=== PATIENT | male | born 1950 | race Caucasian/White ===

== ENCOUNTER 2020-10-30 12:17 | Emergency (ER) | payer MEDICARE, MEDICAID ==
[2020-10-30 12:45] VITALS: BP 164/70; PULSE 99
[2020-10-30] MEDS ORDERED: Sodium Chloride 0.9% 10 ML Syringe FLUSH PRN (13:07)
[2020-10-30] MEDS ORDERED: Sulfamethoxazole/Trimethoprim 800-160 MG Tab PO ONE (14:19)
--- NOTE | 2020-10-30 14:25 | EDM.PDOC ---
ED HPI GENERAL MEDICAL PROBLEM - General Chief Complaint: Skin Complaint Stated Complaint: POSS BLOODCLOT IN LEG Time Seen by Provider: 10/30/20 12:33 Source of Information: Reports: Patient, RN Notes Reviewed History Limitations: Reports: No Limitations - History of Present Illness INITIAL COMMENTS - FREE TEXT/NARRATIVE: Patient is a 69-year-old male presenting to the emergency department with complaints of redness, warmth, and swelling to his right lower extremity from the level of the ankle to just below the knee. States this has been going on for approximately 1 week. He is concerned he could have a blood clot. Patient is not diabetic. Denies any fever, chills, nausea, or vomiting. He has no history of blood clots. Right Leg Pain Score (Numeric/FACES): 4 - Related Data Allergies Allergy/AdvReac Type Severity Reaction Status Date / Time oxycodone Allergy Severe Rash Verified 10/30/20 12:45 Penicillins Allergy Severe Rash Verified 10/30/20 12:45 Home Meds: Home Meds amLODIPine [Norvasc] 10 mg PO DAILY 02/19/16 [History] Oxybutynin Chloride [Oxybutynin Chloride ER] 1 tab PO DAILY 10/30/20 [History] Sulfamethoxazole/Trimethoprim [Bactrim Ds Tablet] 2 each PO BID 10 Days #40 tablet 10/30/20 [Rx] Tamsulosin [Flomax] 1 tab PO DAILY 10/30/20 [History] Past Medical History Cardiovascular History: Reports: Hypertension Genitourinary History: Reports: Renal Calculus Other Genitourinary History: kidney stones Musculoskeletal History: Reports: Other (See Below) Other Musculoskeletal History: 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 - Infectious Disease History Infectious Disease History: Reports: Chicken Pox, Measles Social & Family History - Tobacco Use Tobacco Use Status *Q: Current Every Day Tobacco User Years of Tobacco use: 40 Packs/Tins Daily: 1 - Recreational Drug Use Recreational Drug Use: No ED ROS GENERAL - Review of Systems Review Of Systems: See Below Constitutional: Reports: No Symptoms, Weight Gain. Denies: Fever, Chills, Weakness Respiratory: Reports: No Symptoms Cardiovascular: Reports: No Symptoms Endocrine: Reports: No Symptoms GI/Abdominal: Reports: No Symptoms. Denies: Nausea, Vomiting : Reports: No Symptoms Musculoskeletal: Reports: No Symptoms Skin: Reports: Erythema (Right lower extremity) Neurological: Reports: No Symptoms Psychiatric: Reports: No Symptoms Hematologic/Lymphatic: Reports: No Symptoms Immunologic: Reports: No Symptoms ED EXAM, SKIN/RASH Exam: See Below Exam Limited By: No Limitations General Appearance: Alert, WD/WN, No Apparent Distress Respiratory/Chest: No Respiratory Distress, Lungs Clear, Normal Breath Sounds, No Accessory Muscle Use, Chest Non-Tender Cardiovascular: Normal Peripheral Pulses, Regular Rate, Rhythm, No Edema, No Gallop, No JVD, No Murmur, No Rub Extremities: Other (redness, warmth, and edema to eight lower extremity extending from the ankle to just below the knee. No open areas or weeping noted. ) Neurological: Alert, Oriented, CN II-XII Intact, Normal Cognition, Normal Gait, Normal Reflexes, No Motor/Sensory Deficits Psychiatric: Normal Affect, Normal Mood Course - Vital Signs Last Recorded V/S: Last Vital Signs Temp 98.7 F 10/30/20 12:42 Pulse 99 10/30/20 12:42 Resp 18 10/30/20 12:42 BP 164/70 H 10/30/20 12:42 Pulse Ox 94 L 10/30/20 12:42 - Orders/Labs/Meds Labs: Laboratory Tests 10/30/20 10/30/20 10/30/20 Range/Units 13:27 13:27 13:27 WBC 10.29 H (4.23-9.07) K/mm3 RBC 5.04 (4.63-6.08) M/mm3 Hgb 14.7 (13.7-17.5) gm/dl Hct 45.6 (40.1-51.0) % MCV 90.5 D (79.0-92.2) fl MCH 29.2 (25.7-32.2) pg MCHC 32.2 (32.2-35.5) g/dl RDW Std Deviation 47.5 H (35.1-43.9) fL Plt Count 187 (163-337) K/mm3 MPV 10.3 (9.4-12.3) fl Neut % (Auto) 75.0 H (34.0-67.9) % Lymph % (Auto) 15.5 L (21.8-53.1) % Curry % (Auto) 7.5 (5.3-12.2) % Eos % (Auto) 1.6 (0.8-7.0) Baso % (Auto) 0.1 (0.1-1.2) % Neut # (Auto) 7.73 H (1.78-5.38) K/mm3 Lymph # (Auto) 1.59 (1.32-3.57) K/mm3 Curry # (Auto) 0.77 (0.30-0.82) K/mm3 Eos # (Auto) 0.16 (0.04-0.54) K/mm3 Baso # (Auto) 0.01 (0.01-0.08) K/mm3 D-Dimer, Quantitative 0.36 (0.19-0.50) mg/L Sodium 143 (136-145) mEq/L Potassium 3.6 (3.5-5.1) mEq/L Chloride 106 (98-107) mEq/L Carbon Dioxide 25 (21-32) mEq/L Anion Gap 15.6 H (5-15) BUN 13 (7-18) mg/dL Creatinine 1.2 (0.7-1.3) mg/dL Est Cr Clr Drug Dosing 58.10 mL/min Estimated GFR (MDRD) > 60 (>60) mL/min BUN/Creatinine Ratio 10.8 L (14-18) Glucose 148 H (80-115) mg/dL Lactic Acid (0.4-2.0) mmol/L Calcium 8.7 (8.5-10.1) mg/dL Total Bilirubin 0.6 (0.2-1.0) mg/dL AST 31 (15-37) U/L ALT 34 (16-63) U/L Alkaline Phosphatase 122 H (46-116) U/L C-Reactive Protein 1.0 (<1.0) mg/dL Total Protein 7.1 (6.4-8.2) g/dl Albumin 3.3 L (3.4-5.0) g/dl Globulin 3.8 gm/dL Albumin/Globulin Ratio 0.9 L (1-2) 10/30/20 Range/Units 13:27 WBC (4.23-9.07) K/mm3 RBC (4.63-6.08) M/mm3 Hgb (13.7-17.5) gm/dl Hct (40.1-51.0) % MCV (79.0-92.2) fl MCH (25.7-32.2) pg MCHC (32.2-35.5) g/dl RDW Std Deviation (35.1-43.9) fL Plt Count (163-337) K/mm3 MPV (9.4-12.3) fl Neut % (Auto) (34.0-67.9) % Lymph % (Auto) (21.8-53.1) % Curry % (Auto) (5.3-12.2) % Eos % (Auto) (0.8-7.0) Baso % (Auto) (0.1-1.2) % Neut # (Auto) (1.78-5.38) K/mm3 Lymph # (Auto) (1.32-3.57) K/mm3 Curry # (Auto) (0.30-0.82) K/mm3 Eos # (Auto) (0.04-0.54) K/mm3 Baso # (Auto) (0.01-0.08) K/mm3 D-Dimer, Quantitative (0.19-0.50) mg/L Sodium (136-145) mEq/L Potassium (3.5-5.1) mEq/L Chloride (98-107) mEq/L Carbon Dioxide (21-32) mEq/L Anion Gap (5-15) BUN (7-18) mg/dL Creatinine (0.7-1.3) mg/dL Est Cr Clr Drug Dosing mL/min Estimated GFR (MDRD) (>60) mL/min BUN/Creatinine Ratio (14-18) Glucose (80-115) mg/dL Lactic Acid 2.5 H* (0.4-2.0) mmol/L Calcium (8.5-10.1) mg/dL Total Bilirubin (0.2-1.0) mg/dL AST (15-37) U/L ALT (16-63) U/L Alkaline Phosphatase (46-116) U/L C-Reactive Protein (<1.0) mg/dL Total Protein (6.4-8.2) g/dl Albumin (3.4-5.0) g/dl Globulin gm/dL Albumin/Globulin Ratio (1-2) Meds: Medications Discontinued Medications Generic Name Dose Route Start Last Admin Trade Name Chantal PRN Reason Stop Dose Admin Sodium Chloride 10 ml 10/30/20 13:07 Saline Flush FLUSH ASDIRECTED PRN Keep Vein Open Trimethoprim/Sulfamethoxazole 2 tab 10/30/20 14:19 10/30/20 14:50 Septra Ds PO 10/30/20 14:20 2 tab ONETIME ONE Administration - Re-Assessments/Exams Free Text/Narrative Re-Assessment/Exam: Patient is a 69-year-old male presenting to the emergency department with complaints of redness, warmth, and swelling to his right lower extremity. He is concerned that he could possibly have a blood clot. On exam, there is an area of redness, warmth, and swelling extending from the right ankle to just below the right knee. This has the appearance of a cellulitis as opposed to DVT. I have ordered CBC, CMP, CRP, lactic acid, blood cultures, and D-dimer. 10/30/20 14:24 Hematology was significant for WBC minimally elevated 10.29, anion gap 15.6, lactic acid 2.5. D-dimer is normal at 0.36. He has no signs of systemic infection. He is not tachycardic, tachypneic, or febrile. He has had no nausea or vomiting. Patient is not diabetic. I will start him on a course of Bactrim for treatment of cellulitis. Discussed return precautions. Discharge instructions as documented. Departure - Departure Time of Disposition: 14:28 Disposition: Home, Self-Care 01 Condition: Good Clinical Impression: Cellulitis Qualifiers: Site of cellulitis: extremity Site of cellulitis of extremity: lower extremity Laterality: right Qualified Code(s): L03.115 - Cellulitis of right lower limb - Discharge Information *PRESCRIPTION DRUG MONITORING PROGRAM REVIEWED*: No *COPY OF PRESCRIPTION DRUG MONITORING REPORT IN PATIENT AVINASH: No Prescriptions: Sulfamethoxazole/Trimethoprim [Bactrim Ds Tablet] 2 each PO BID 10 Days #40 tablet Instructions: Cellulitis, Adult, [id number] Referrals: Omar Butt Jr, MD [Primary Care Provider] - Forms: ED Department Discharge Additional Instructions: You were seen in the emergency department today for redness, warmth, and swelling to your right lower extremity. Work was completed and shows that you do not have a blood clot in lower extremity. As we discussed, this is a cellulitis which is an infection of the skin. You have been started on Bactrim for treatment of this. Take the medication as prescribed. Your first dose was given in the emergency department. If you should experience signs of worsening infection such as development of fever, chills, nausea, vomiting, or worsening of the redness and swelling of the right lower extremity, please return to the emergency department for reevaluation. Sepsis Event Note (ED) - Evaluation Sepsis Screening Result: No Definite Risk
== END 2020-10-30 14:58 | disposition home or self-care (01) ==
LOC: JD.ED 12:17
DX: L03.115 Cellulitis of right lower limb (principal); I10 Essential (primary) hypertension; G35 Multiple sclerosis; Z88.5 Allergy status to narcotic agent; Z88.0 Allergy status to penicillin; Z79.899 Other long term (current) drug therapy; Z72.0 Tobacco use
CPT/HCPCS: 36415; 80053; 83605; 85025; 85379; 86140; 87040; 99283; A9270

== ENCOUNTER 2021-07-18 15:52 | Emergency (ER) | payer MEDICARE, MEDICAID ==
[2021-07-18 16:48] VITALS: PULSE 80
[2021-07-18] MEDS ORDERED: Sodium Chloride 0.9% 10 ML Syringe FLUSH PRN (17:03)
[2021-07-18] MEDS ORDERED: Ondansetron 4 MG/2 ML SDV IVPUSH ONE (17:03)
[2021-07-18] MEDS ORDERED: Sodium Chloride 0.9% 1,000 ML IV ONE (17:21)
[2021-07-18 17:37] LABS: CORONAVIRUS COVID-19 NAA NEGATIVE (NEGATIVE)
--- NOTE | 2021-07-18 17:45 | EDM.PDOC ---
ED HPI GENERAL MEDICAL PROBLEM - General Chief Complaint: Gastrointestinal Problem Stated Complaint: HEADACHE Time Seen by Provider: 07/18/21 16:56 Source of Information: Reports: Patient, RN Notes Reviewed History Limitations: Reports: No Limitations - History of Present Illness INITIAL COMMENTS - FREE TEXT/NARRATIVE: Patient is a 70-year-old male who presents to the ER today for his ongoing nausea/vomiting. States that this has been going on for at least 3 or 4 days. States he is not been able to keep anything down for food or fluids. No associated fevers, cough or shortness of breath. Also no associated diarrhea. States he has not had a bowel movement maybe for 2 days as well. Is not complaining of any pain anywhere. States he has not been around anyone has been sick. - Related Data Allergies Allergy/AdvReac Type Severity Reaction Status Date / Time oxycodone Allergy Severe Rash Verified 07/18/21 16:47 Penicillins Allergy Severe Rash Verified 07/18/21 16:47 Home Meds: Home Meds amLODIPine [Norvasc] 10 mg PO DAILY 02/19/16 [History] Oxybutynin Chloride [Oxybutynin Chloride ER] 1 tab PO DAILY 10/30/20 [History] Ondansetron [Zofran ODT] 4 mg PO Q8H PRN #15 tab.dis 07/18/21 [Rx] Past Medical History HEENT History: Reports: Cataract Cardiovascular History: Reports: Hypertension Genitourinary History: Reports: Renal Calculus Other Genitourinary History: kidney stones Musculoskeletal History: Reports: Other (See Below) Other Musculoskeletal History: 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 - Infectious Disease History Infectious Disease History: Reports: Chicken Pox, Measles Social & Family History - Tobacco Use Tobacco Use Status *Q: Current Every Day Tobacco User Years of Tobacco use: 40 Packs/Tins Daily: 1 - Caffeine Use Caffeine Use: Reports: Soda - Recreational Drug Use Recreational Drug Use: No ED ROS GENERAL - Review of Systems Review Of Systems: Comprehensive ROS is negative, except as noted in HPI. ED EXAM, GI/ABD - Physical Exam Exam: See Below Exam Limited By: No Limitations General Appearance: Alert, WD/WN, No Apparent Distress Respiratory/Chest: No Respiratory Distress, Lungs Clear, Normal Breath Sounds, No Accessory Muscle Use, Chest Non-Tender Cardiovascular: Normal Peripheral Pulses, Regular Rate, Rhythm, No Edema GI/Abdominal Exam: Normal Bowel Sounds, Soft, No Distention, No Mass, Tender (slight generalized) Neurological: Alert, Oriented, Normal Cognition, No Motor/Sensory Deficits Psychiatric: Normal Affect, Normal Mood Skin Exam: Warm, Dry, Intact, Normal Color, No Rash Course - Vital Signs Last Recorded V/S: Last Vital Signs Temp 97.2 F 07/18/21 16:47 Pulse 80 07/18/21 16:47 Resp 20 07/18/21 16:47 BP 137/74 07/18/21 16:47 Pulse Ox 96 07/18/21 16:47 - Orders/Labs/Meds Orders: Active Orders 24 hr Category Date Time Status Peripheral IV Care [RC] . DIRECTED Care 07/18/21 17:03 Ordered Sodium Chloride 0.9% [Saline Flush] Med 07/18/21 17:03 Active 10 ml FLUSH ASDIRECTED PRN Peripheral IV Insertion Adult [OM.PC] Routine Oth 07/18/21 17:03 Ordered Medication Orders Sodium Chloride (Sodium Chloride 0.9% 10 Ml Syringe) 10 ml FLUSH ASDIRECTED PRN PRN Reason: Keep Vein Open Last Admin: 07/18/21 17:36 Dose: 10 ml Documented by: ANDRE Labs: Laboratory Tests 07/18/21 07/18/21 07/18/21 Range/Units 16:52 17:35 17:35 WBC 11.75 H (4.23-9.07) K/mm3 RBC 5.30 (4.63-6.08) M/mm3 Hgb 15.3 (13.7-17.5) gm/dl Hct 47.9 (40.1-51.0) % MCV 90.4 (79.0-92.2) fl MCH 28.9 (25.7-32.2) pg MCHC 31.9 L (32.2-35.5) g/dl RDW Std Deviation 45.8 H (35.1-43.9) fL Plt Count 200 (163-337) K/mm3 MPV 10.2 (9.4-12.3) fl Neut % (Auto) 73.7 H (34.0-67.9) % Lymph % (Auto) 17.0 L (21.8-53.1) % Tyler % (Auto) 7.7 (5.3-12.2) % Eos % (Auto) 1.2 (0.8-7.0) Baso % (Auto) 0.2 (0.1-1.2) % Neut # (Auto) 8.67 H (1.78-5.38) K/mm3 Lymph # (Auto) 2.00 (1.32-3.57) K/mm3 Tyler # (Auto) 0.90 H (0.30-0.82) K/mm3 Eos # (Auto) 0.14 (0.04-0.54) K/mm3 Baso # (Auto) 0.02 (0.01-0.08) K/mm3 Sodium 143 (136-145) mEq/L Potassium 3.6 (3.5-5.1) mEq/L Chloride 103 (98-107) mEq/L Carbon Dioxide 29 (21-32) mEq/L Anion Gap 14.6 (5-15) BUN 24 H (7-18) mg/dL Creatinine 1.2 (0.7-1.3) mg/dL Est Cr Clr Drug Dosing 57.28 mL/min Estimated GFR (MDRD) 60 (>60) mL/min BUN/Creatinine Ratio 20.0 H (14-18) Glucose 109 H (70-99) mg/dL Calcium 9.3 (8.5-10.1) mg/dL Total Bilirubin 1.0 (0.2-1.0) mg/dL AST 67 H (15-37) U/L ALT 60 (16-63) U/L Alkaline Phosphatase 125 H (46-116) U/L C-Reactive Protein <0.2 (<1.0) mg/dL Total Protein 8.0 (6.4-8.2) g/dl Albumin 4.2 (3.4-5.0) g/dl Globulin 3.8 gm/dL Albumin/Globulin Ratio 1.1 (1-2) Influenza Type A RNA Negative (NEGATIVE) Influenza Type B RNA Negative (NEGATIVE) SARS-CoV-2 RNA (ASHIA) Negative (NEGATIVE) Meds: Medications Generic Name Dose Route Start Last Admin Trade Name Freq PRN Reason Stop Dose Admin Sodium Chloride 10 ml 07/18/21 17:03 07/18/21 17:36 Sodium Chloride 0.9% 10 Ml Syringe FLUSH 10 ml ASDIRECTED PRN Administration Keep Vein Open Discontinued Medications Generic Name Dose Route Start Last Admin Trade Name Chantal PRN Reason Stop Dose Admin Sodium Chloride 1,000 mls @ 999 mls/hr 07/18/21 17:21 07/18/21 17:35 Normal Saline IV 07/18/21 18:21 999 mls/hr ONETIME ONE Administration Ondansetron HCl 4 mg 07/18/21 17:03 07/18/21 17:36 Ondansetron 4 Mg/2 Ml Sdv IVPUSH 07/18/21 17:04 4 mg ONETIME ONE Administration - Re-Assessments/Exams Free Text/Narrative Re-Assessment/Exam: 07/18/21 17:40 Patient presents to the ER for his nausea and vomiting. We will go ahead and get IV started given some fluids, get some basic labs and a Covid screen for ongoing management. 07/18/21 19:10 Covid screen is negative along with a flu screen, labs are essentially unremarkable as well. We will go ahead and give the patient some oral fluids and crackers to see if he can keep food and fluids down and then hopefully get him discharged home with conservative recommendation. 07/18/21 19:48 Patient was able to keep the fluid and crackers down, we will go ahead and discharge him home with some Zofran and have him follow-up on Wednesday if not much better Departure - Departure Time of Disposition: 19:50 Disposition: Home, Self-Care 01 Condition: Good Clinical Impression: Gastroenteritis - Discharge Information *PRESCRIPTION DRUG MONITORING PROGRAM REVIEWED*: No *COPY OF PRESCRIPTION DRUG MONITORING REPORT IN PATIENT AVINASH: No Instructions: Viral Gastroenteritis, Adult, [id number] Referrals: Asia Fofana, [employer] [Primary Care Provider] - Forms: ED Department Discharge Additional Instructions: You have been evaluated in the ED for nausea/vomiting. It is likely that this is caused from a viral gastroenteritis. All labs done at today's visit were unremarkable or negative. You have received IV fluid and medication in the ED to help with the dehydration from the vomiting Over the next 24-48 hours please try to limit diet to clear liquids and advance as tolerated to a bland diet to alleviate symptoms of nausea/vomiting. Please use the Zofran every 8 hours as needed for nausea. This medication was electronically sent to the [place] [facility] located in the [employer]. Please return to the ED if your symptoms should change or worsen. Sepsis Event Note (ED) - Focused Exam Vital Signs: Vital Signs Temp Pulse Resp BP Pulse Ox 07/18/21 16:47 97.2 F 80 20 137/74 96 07/18/21 16:03 98.1 F 84 20 127/76 100 - My Orders Last 24 Hours: My Active Orders 07/18/21 17:03 Peripheral IV Care [RC] . DIRECTED Sodium Chloride 0.9% [Saline Flush] 10 ml FLUSH ASDIRECTED PRN Peripheral IV Insertion Adult [OM.PC] Routine - Assessment/Plan Last 24 Hours: My Active Orders 07/18/21 17:03 Peripheral IV Care [RC] . DIRECTED Sodium Chloride 0.9% [Saline Flush] 10 ml FLUSH ASDIRECTED PRN Peripheral IV Insertion Adult [OM.PC] Routine
--- NOTE | 2021-07-18 18:20 | PCM.SN.2 ---
- Free Text/Narrative Note: 07/18/21 [id number] IV started 20 guage left antecubital times 1 attempt- also luis felipe blood from the site. Flushed and secured per nurse Jade
[2021-07-18 22:30] VITALS: BP 128/82
== END 2021-07-18 20:00 | disposition home or self-care (01) ==
LOC: JD.ED 15:52
DX: K52.9 Noninfective gastroenteritis and colitis, unspecified (principal); I10 Essential (primary) hypertension; Z72.0 Tobacco use; Z88.5 Allergy status to narcotic agent; Z88.0 Allergy status to penicillin; Z20.822 Contact with and (suspected) exposure to COVID-19
CPT/HCPCS: 0240U; 36415; 80053; 85025; 86140; 96374; 99284; J2405; J7030; 36410; 99100

== ENCOUNTER 2021-09-28 09:12 | Emergency (ER) | payer MEDICARE, MEDICAID ==
[2021-09-28 09:50] VITALS: BP 132/70; PULSE 77
[2021-09-28] MEDS ORDERED: cefTRIAXone 1 GM, Lidocaine 1% 2.1 ML IM ONE ×2 (10:18)
== END 2021-09-28 11:13 | disposition home or self-care (01) ==
LOC: JD.ED 09:12
DX: K04.7 Periapical abscess without sinus (principal); K02.9 Dental caries, unspecified; I10 Essential (primary) hypertension; Z88.0 Allergy status to penicillin; Z88.5 Allergy status to narcotic agent; Z79.899 Other long term (current) drug therapy
CPT/HCPCS: 96372; 99282; J0696; 99283

== ENCOUNTER 2022-03-18 06:59 | Inpatient (IN) | payer MEDICARE, MEDICAID ==
[2022-03-18] MEDS ORDERED: Sodium Chloride 0.9% 10 ML Syringe FLUSH PRN (07:37)
[2022-03-18] MEDS ORDERED: Ondansetron 4 MG/2 ML SDV IVPUSH ONE (07:42)
[2022-03-18] MEDS ORDERED: Sodium Chloride 0.9% 1,000 ML IV SCH (07:45)
[2022-03-18] MEDS ORDERED: Sodium Chloride 0.9% 10 ML Syringe FLUSH ONE (08:54)
[2022-03-18] MEDS ORDERED: Iopamidol 612 MG/ML 100 ML Bottle IVPUSH ONE (08:54)
[2022-03-18] MEDS ORDERED: Sodium Chloride 0.9% 100 ML IV SCH (09:00)
[2022-03-18] MEDS ORDERED: HYDROmorphone 0.5 MG/0.5 ML Syringe IVPUSH ONE ×2 (10:55→12:39)
[2022-03-18] MEDS ORDERED: Lactated Ringers 1,000 ML IV SCH (13:15)
[2022-03-18] MEDS ORDERED: Ondansetron 4 MG/2 ML SDV IVPUSH PRN (17:35)
[2022-03-18] MEDS: HYDROmorphone 0.5 MG/0.5 ML Syringe IVPUSH PRN ×2 (18:31→23:26)
[2022-03-18] MEDS: Lactated Ringers 1,000 ML IV SCH (18:32)
[2022-03-18] MEDS: Oxybutynin 5 MG Tab.ER PO SCH (20:52)
[2022-03-18] MEDS: Tamsulosin 0.4 MG Cap.ER PO SCH (20:52)
[2022-03-19] MEDS: Lactated Ringers 1,000 ML IV SCH ×3 (02:08→18:11)
[2022-03-19] MEDS: HYDROmorphone 0.5 MG/0.5 ML Syringe IVPUSH PRN ×2 (07:11→20:38)
[2022-03-19] MEDS: Oxybutynin 5 MG Tab.ER PO SCH (08:06)
[2022-03-19] MEDS: Tamsulosin 0.4 MG Cap.ER PO SCH (08:06)
[2022-03-19] MEDS: Nicotine 14 MG/24 Hr Patch TRDERM SCH (12:07)
[2022-03-19] MEDS: Enoxaparin 40 MG/0.4 ML Syringe SUBCUT SCH (12:07)
[2022-03-19] MEDS: Acetaminophen/HYDROcodone 325-5 MG Tab PO PRN (18:59)
[2022-03-20] MEDS: Acetaminophen/HYDROcodone 325-5 MG Tab PO PRN ×3 (01:07→20:42)
[2022-03-20] MEDS: Lactated Ringers 1,000 ML IV SCH (01:10)
[2022-03-20] MEDS: HYDROmorphone 0.5 MG/0.5 ML Syringe IVPUSH PRN (04:16)
[2022-03-20] MEDS ORDERED: Lactated Ringers 1,000 ML IV SCH (07:20)
[2022-03-20] MEDS: Oxybutynin 5 MG Tab.ER PO SCH (08:09)
[2022-03-20] MEDS: Nicotine 14 MG/24 Hr Patch TRDERM SCH (08:09)
[2022-03-20] MEDS: Tamsulosin 0.4 MG Cap.ER PO SCH (08:18)
[2022-03-20] MEDS: Dextrose 5%-Lact Ringers w/KCl 1,000 ML IV SCH ×2 (08:19→23:42)
[2022-03-20] MEDS: Enoxaparin 40 MG/0.4 ML Syringe SUBCUT SCH (13:23)
[2022-03-21] MEDS ORDERED: Bupivacaine 0.5%/EPINEPHrine 1:200,000 50 ML MDV ONE (07:25)
[2022-03-21] MEDS ORDERED: Rocuronium 50 MG/5 ML Vial ONE (07:27)
[2022-03-21] MEDS ORDERED: fentaNYL 250 MCG/5 ML SDV ONE (07:27)
[2022-03-21] MEDS ORDERED: Midazolam 1 MG/ML 2 ML SDV ONE (07:27)
[2022-03-21] MEDS ORDERED: Ondansetron 4 MG/2 ML SDV ONE (07:27)
[2022-03-21] MEDS ORDERED: Propofol 200 MG/20 ML SDV ONE (07:28)
[2022-03-21] MEDS ORDERED: Lidocaine 1% 5 ML VIAL ONE (07:28)
[2022-03-21] MEDS ORDERED: Ketamine 500 mg/10 ML MDV ONE (07:31)
[2022-03-21] MEDS ORDERED: Lactated Ringers 1,000 ML ONE ×2 (07:36→10:15)
[2022-03-21] MEDS ORDERED: Succinylcholine 200 MG/10 ML MDV ONE (07:37)
[2022-03-21] MEDS ORDERED: Potassium Chloride 10 MEQ in Premix Bag 1 BAG IV ONE (07:41)
[2022-03-21] MEDS ORDERED: fentaNYL 100 MCG/2 ML SDV IVPUSH PRN (07:56)
[2022-03-21] MEDS ORDERED: Ondansetron 4 MG/2 ML SDV IVPUSH PRN (07:56)
[2022-03-21] MEDS ORDERED: HYDROmorphone 0.5 MG/0.5 ML Syringe IVPUSH PRN (07:56)
[2022-03-21] MEDS: Tamsulosin 0.4 MG Cap.ER PO SCH ×2 (08:26→12:33)
[2022-03-21] MEDS: Oxybutynin 5 MG Tab.ER PO SCH ×2 (08:27→12:32)
[2022-03-21] MEDS ORDERED: ceFAZolin 2 GM Vial ONE (08:35)
[2022-03-21] MEDS ORDERED: Dexamethasone 4 MG/ML 5 ML MDV ONE (08:36)
[2022-03-21] MEDS ORDERED: Phenylephrine HCl In 0.9% NaCl 1 MG/10 ML Vial ONE (08:50)
[2022-03-21] MEDS: Glucagon,Human Recombinant 1 MG Vial ONE ×2 (08:54→09:54)
[2022-03-21] MEDS: Sodium Chloride 0.9% 50 ML SDV ONE ×2 (09:33→09:52)
[2022-03-21] MEDS: Iopamidol 612 MG/ML 50 ML SDV ONE ×2 (09:35→09:52)
[2022-03-21] MEDS ORDERED: Sodium Chloride 0.9% 50 ML SDV ONE (09:54)
[2022-03-21] MEDS ORDERED: Neostigmine Methylsulfate 10 MG/10 ML MDV ONE (10:20)
[2022-03-21] MEDS ORDERED: Albuterol 0.083% 2.5 MG/3 ML Neb Soln NEB ONE (10:48)
[2022-03-21] MEDS ORDERED: Albuterol 0.083% 2.5 MG/3 ML Neb Soln ONE (10:50)
[2022-03-21] MEDS: Nicotine 14 MG/24 Hr Patch TRDERM SCH (12:31)
[2022-03-21] MEDS: Potassium Chloride 10 MEQ in Premix Bag 1 BAG IV SCH ×2 (12:34→13:58)
[2022-03-21] MEDS: Enoxaparin 40 MG/0.4 ML Syringe SUBCUT SCH (12:34)
[2022-03-21] MEDS: Dextrose 5%-Lact Ringers w/KCl 1,000 ML IV SCH (16:44)
[2022-03-21] MEDS: Polyethylene Glycol 3350 Powder 17 GM Packet PO PRN (18:08)
[2022-03-21] MEDS: Acetaminophen/HYDROcodone 325-5 MG Tab PO PRN (18:24)
[2022-03-21] MEDS ORDERED: Dextrose 5%-Lact Ringers w/KCl 1,000 ML IV SCH (19:15)
[2022-03-21] MEDS: guaiFENesin/Dextromethorphan 100-10 MG/5 ML Soln 5 ML Cup PO PRN (21:43)
[2022-03-21] MEDS: HYDROmorphone 0.5 MG/0.5 ML Syringe IVPUSH PRN (21:45)
[2022-03-22] MEDS: Acetaminophen/HYDROcodone 325-5 MG Tab PO PRN ×2 (03:54→18:59)
[2022-03-22] MEDS: guaiFENesin/Dextromethorphan 100-10 MG/5 ML Soln 5 ML Cup PO PRN ×2 (03:54→20:27)
[2022-03-22] MEDS: Nicotine 14 MG/24 Hr Patch TRDERM SCH (09:08)
[2022-03-22] MEDS: Oxybutynin 5 MG Tab.ER PO SCH (09:09)
[2022-03-22] MEDS: Tamsulosin 0.4 MG Cap.ER PO SCH (09:09)
[2022-03-22] MEDS: Rosuvastatin 10 MG Tab PO SCH (09:09)
[2022-03-22] MEDS: Polyethylene Glycol 3350 Powder 17 GM Packet PO PRN (09:22)
[2022-03-22] MEDS: Enoxaparin 40 MG/0.4 ML Syringe SUBCUT SCH (11:42)
[2022-03-22] MEDS: amLODIPine 10 MG Tab PO SCH (20:27)
[2022-03-22] MEDS: traZODone 50 MG Tab PO PRN (22:50)
[2022-03-23] MEDS: Acetaminophen/HYDROcodone 325-5 MG Tab PO PRN ×2 (05:55→15:26)
[2022-03-23] MEDS ORDERED: Lactated Ringers 1,000 ML IV SCH (08:00)
[2022-03-23] MEDS: Tamsulosin 0.4 MG Cap.ER PO SCH (08:03)
[2022-03-23] MEDS: guaiFENesin/Dextromethorphan 100-10 MG/5 ML Soln 5 ML Cup PO PRN (08:03)
[2022-03-23] MEDS: Oxybutynin 5 MG Tab.ER PO SCH (08:03)
[2022-03-23] MEDS: Rosuvastatin 10 MG Tab PO SCH (08:04)
[2022-03-23] MEDS: Nicotine 14 MG/24 Hr Patch TRDERM SCH (08:04)
[2022-03-23] MEDS: Enoxaparin 40 MG/0.4 ML Syringe SUBCUT SCH (11:42)
[2022-03-23] MEDS: Polyethylene Glycol 3350 Powder 17 GM Packet PO PRN ×2 (11:54→21:13)
[2022-03-23] MEDS: traZODone 50 MG Tab PO PRN (21:12)
[2022-03-23] MEDS: amLODIPine 10 MG Tab PO SCH (21:12)
[2022-03-24] MEDS: Acetaminophen 325 MG Tab PO PRN ×3 (00:28→23:06)
[2022-03-24] MEDS ORDERED: Bisacodyl 10 MG Supp RECTAL ONE (07:22)
[2022-03-24] MEDS: Rosuvastatin 10 MG Tab PO SCH (08:07)
[2022-03-24] MEDS: Nicotine 14 MG/24 Hr Patch TRDERM SCH (08:07)
[2022-03-24] MEDS: Oxybutynin 5 MG Tab.ER PO SCH (08:07)
[2022-03-24] MEDS: guaiFENesin/Dextromethorphan 100-10 MG/5 ML Soln 5 ML Cup PO PRN ×2 (08:08→23:05)
[2022-03-24] MEDS: Tamsulosin 0.4 MG Cap.ER PO SCH (08:08)
[2022-03-24] MEDS: Enoxaparin 40 MG/0.4 ML Syringe SUBCUT SCH (11:42)
[2022-03-24] MEDS ORDERED: Magnesium Hydroxide 400 MG/5 ML Susp 30 ML Cup PO PRN (19:32)
[2022-03-24] MEDS: amLODIPine 10 MG Tab PO SCH (20:44)
[2022-03-24] MEDS: Polyethylene Glycol 3350 Powder 17 GM Packet PO PRN (20:44)
[2022-03-25] MEDS: Oxybutynin 5 MG Tab.ER PO SCH (08:11)
[2022-03-25] MEDS: Rosuvastatin 10 MG Tab PO SCH (08:11)
[2022-03-25] MEDS: Tamsulosin 0.4 MG Cap.ER PO SCH (08:11)
[2022-03-25] MEDS: Nicotine 14 MG/24 Hr Patch TRDERM SCH (08:13)
[2022-03-25 09:20] VITALS: BP 128/71; PULSE 69
[2022-03-25] MEDS: Enoxaparin 40 MG/0.4 ML Syringe SUBCUT SCH (13:52)
== END 2022-03-25 12:00 | disposition home or self-care (01) | DRG 419 ==
LOC: JD.ED 06:59 → JD.ICU 14:30 → JD.MS 03-23 13:15
PROVIDERS: ADMIT Surgery; ATTEND Surgery
PROC: 02HV33Z Insertion of Infusion Device into Superior Vena Cava, Percutaneous Approach (ICD-10-PCS; 2022-03-20)
PROC: 0FT44ZZ Resection of Gallbladder, Percutaneous Endoscopic Approach (ICD-10-PCS; principal; 2022-03-21)
DX: K85.90 Acute pancreatitis without necrosis or infection, unspecified (principal); K81.9 Cholecystitis, unspecified; K85.10 Biliary acute pancreatitis without necrosis or infection; E66.9 Obesity, unspecified; G35 Multiple sclerosis; R73.03 Prediabetes; Z88.0 Allergy status to penicillin; Z88.8 Allergy status to other drugs, medicaments and biological substances; N40.1 Benign prostatic hyperplasia with lower urinary tract symptoms; N39.498 Other specified urinary incontinence; F17.210 Nicotine dependence, cigarettes, uncomplicated; I10 Essential (primary) hypertension; R50.9 Fever, unspecified; Z98.890 Other specified postprocedural states; Z68.32 Body mass index [BMI] 32.0-32.9, adult; Z79.899 Other long term (current) drug therapy; Z79.1 Long term (current) use of non-steroidal anti-inflammatories (NSAID); Z98.42 Cataract extraction status, left eye; Z98.41 Cataract extraction status, right eye; Z87.440 Personal history of urinary (tract) infections; Z87.442 Personal history of urinary calculi
CPT/HCPCS: 36415; 74019; 74177; 76705; 80053; 82977; 83690; 85025; 86140; 96361; 96374; 96375; 96376; 99285; J1170 ×2; J2405; J3490 ×2; J7030; Q9967; 00790; 36410; 71045; 71045-26; 74181; 74181-26; 76000; 76000-26; 76937; 80048; 80076; 87040; 93005; 94667; 94668; 97116-GP; 97162-GP; 97166-GO; 97530-GO; 97530-GP; 97535-GO; 99100; 99284; A9270-GY; J0330; J0690; J1100; J1610; J1650; J2250; J2704; J2710; J3010; J3480; J7120

== ENCOUNTER 2022-04-02 16:51 | Inpatient (IN) | payer MEDICARE, MEDICAID ==
[2022-04-02] MEDS ORDERED: Sodium Chloride 0.9% 1,000 ML IV ONE ×3 (17:27→18:36)
[2022-04-02] MEDS ORDERED: Cefepime 2 GM in Sodium Chloride 0.9% 50 ML IV ONE (18:11)
[2022-04-02] MEDS ORDERED: metroNIDAZOLE/Normal Saline 500 MG in Premix Bag 1 BAG IV ONE (18:11)
[2022-04-02] MEDS ORDERED: Docusate Sodium 100 MG Cap PO PRN (19:18)
[2022-04-02] MEDS ORDERED: Ondansetron 4 MG Tab.DIS PO PRN (19:18)
[2022-04-02] MEDS ORDERED: Pneumococcal 23-Valent Conjugate Vaccine 0.5 ML Syringe IM ONE (19:18)
[2022-04-02] MEDS ORDERED: Sodium Chloride 0.9% 3,000 ML ONE (22:37)
[2022-04-02] MEDS: Heparin Sodium 5,000 Units/ML Vial SUBCUT SCH (22:46)
[2022-04-03] MEDS: Cefepime 2 GM in Sodium Chloride 0.9% 50 ML IV SCH ×3 (02:28→19:16)
[2022-04-03] MEDS: Sodium Chloride 0.9% 1,000 ML IV SCH ×3 (02:36→23:45)
[2022-04-03] MEDS: Heparin Sodium 5,000 Units/ML Vial SUBCUT SCH ×3 (03:10→20:55)
[2022-04-03] MEDS: Acetaminophen 325 MG Tab PO PRN ×3 (03:13→20:56)
[2022-04-03] MEDS ORDERED: REMDESIVIR 200 MG in Sodium Chloride 0.9% 250 ML IV ONE (09:00)
[2022-04-03] MEDS: Tamsulosin 0.4 MG Cap.ER PO SCH (11:03)
[2022-04-03] MEDS: amLODIPine 10 MG Tab PO SCH (11:03)
[2022-04-03] MEDS: Oxybutynin 5 MG Tab.ER PO SCH (11:05)
[2022-04-03] MEDS: Losartan 50 MG Tab PO SCH (11:06)
[2022-04-04] MEDS: Cefepime 2 GM in Sodium Chloride 0.9% 50 ML IV SCH ×3 (03:19→17:05)
[2022-04-04] MEDS: Heparin Sodium 5,000 Units/ML Vial SUBCUT SCH ×3 (03:19→20:16)
[2022-04-04] MEDS: Acetaminophen 325 MG Tab PO PRN ×2 (05:22→20:16)
[2022-04-04] MEDS: amLODIPine 10 MG Tab PO SCH (09:23)
[2022-04-04] MEDS: Tamsulosin 0.4 MG Cap.ER PO SCH (09:23)
[2022-04-04] MEDS: Furosemide 20 MG Tab PO SCH (09:23)
[2022-04-04] MEDS: Losartan 50 MG Tab PO SCH (09:23)
[2022-04-04] MEDS: Oxybutynin 5 MG Tab.ER PO SCH (09:23)
[2022-04-04] MEDS: REMDESIVIR 100 MG in Sodium Chloride 0.9% 250 ML IV SCH (09:24)
[2022-04-04] MEDS: Sodium Chloride 0.9% 1,000 ML IV SCH ×2 (09:36→20:15)
[2022-04-05] MEDS: Cefepime 2 GM in Sodium Chloride 0.9% 50 ML IV SCH ×4 (02:24→17:29)
[2022-04-05] MEDS: Acetaminophen 325 MG Tab PO PRN ×3 (02:28→19:57)
[2022-04-05] MEDS: Heparin Sodium 5,000 Units/ML Vial SUBCUT SCH ×4 (02:30→19:59)
[2022-04-05] MEDS: Sodium Chloride 0.9% 1,000 ML IV SCH (05:33)
[2022-04-05] MEDS: Furosemide 20 MG Tab PO SCH (08:41)
[2022-04-05] MEDS: Oxybutynin 5 MG Tab.ER PO SCH (08:41)
[2022-04-05] MEDS: Tamsulosin 0.4 MG Cap.ER PO SCH (08:42)
[2022-04-05] MEDS: Losartan 50 MG Tab PO SCH (08:44)
[2022-04-05] MEDS: amLODIPine 10 MG Tab PO SCH (08:45)
[2022-04-05] MEDS ORDERED: Potassium Chloride 20 MEQ Tab.ER PO ONE (09:25)
[2022-04-05] MEDS: REMDESIVIR 100 MG in Sodium Chloride 0.9% 250 ML IV SCH (09:42)
[2022-04-05] MEDS ORDERED: Sodium Chloride 0.9% 1,000 ML IV SCH (16:15)
[2022-04-06] MEDS ORDERED: Cefepime 2 GM Vial ONE (04:36)
[2022-04-06] MEDS: Cefepime 2 GM in Sodium Chloride 0.9% 50 ML IV SCH ×4 (04:43→20:19)
[2022-04-06] MEDS: Heparin Sodium 5,000 Units/ML Vial SUBCUT SCH ×3 (04:45→20:20)
[2022-04-06] MEDS ORDERED: LORazepam 0.5 MG Tab PO PRN (06:21)
[2022-04-06] MEDS: Furosemide 20 MG Tab PO SCH (08:20)
[2022-04-06] MEDS: amLODIPine 10 MG Tab PO SCH (08:21)
[2022-04-06] MEDS: Oxybutynin 5 MG Tab.ER PO SCH (08:21)
[2022-04-06] MEDS: Losartan 50 MG Tab PO SCH (08:21)
[2022-04-06] MEDS: Tamsulosin 0.4 MG Cap.ER PO SCH (08:22)
[2022-04-06] MEDS ORDERED: Potassium Chloride 20 MEQ Tab.ER PO ONE (08:55)
[2022-04-07] MEDS: Cefepime 2 GM in Sodium Chloride 0.9% 50 ML IV SCH ×3 (05:16→20:32)
[2022-04-07] MEDS: Heparin Sodium 5,000 Units/ML Vial SUBCUT SCH ×3 (05:17→20:29)
[2022-04-07] MEDS: Furosemide 20 MG Tab PO SCH (08:21)
[2022-04-07] MEDS: Oxybutynin 5 MG Tab.ER PO SCH (08:22)
[2022-04-07] MEDS: Losartan 50 MG Tab PO SCH (08:22)
[2022-04-07] MEDS: amLODIPine 10 MG Tab PO SCH (08:23)
[2022-04-07] MEDS: Tamsulosin 0.4 MG Cap.ER PO SCH (08:23)
[2022-04-07] MEDS ORDERED: Sodium Chloride 0.9% 10 ML Syringe FLUSH PRN (11:40)
[2022-04-07] MEDS ORDERED: Iopamidol 755 Mg/ML 100 ML Bottle IVPUSH ONE (12:00)
[2022-04-07] MEDS ORDERED: Sodium Chloride 0.9% 100 ML IV SCH (12:00)
[2022-04-07] MEDS ORDERED: Sodium Chloride 0.9% 10 ML Syringe IARTIC ONE (12:00)
[2022-04-07] MEDS: Potassium Chloride 20 MEQ Tab.ER PO SCH ×2 (17:18→20:25)
[2022-04-08] MEDS: Cefepime 2 GM in Sodium Chloride 0.9% 50 ML IV SCH ×4 (04:41→20:01)
[2022-04-08] MEDS: Heparin Sodium 5,000 Units/ML Vial SUBCUT SCH ×3 (04:44→19:58)
[2022-04-08] MEDS: Oxybutynin 5 MG Tab.ER PO SCH (08:25)
[2022-04-08] MEDS: amLODIPine 10 MG Tab PO SCH (08:25)
[2022-04-08] MEDS: Tamsulosin 0.4 MG Cap.ER PO SCH (08:25)
[2022-04-08] MEDS: Losartan 50 MG Tab PO SCH (08:25)
[2022-04-08] MEDS: Furosemide 20 MG Tab PO SCH (08:26)
[2022-04-09] MEDS: Heparin Sodium 5,000 Units/ML Vial SUBCUT SCH ×3 (05:09→20:50)
[2022-04-09] MEDS: Cefepime 2 GM in Sodium Chloride 0.9% 50 ML IV SCH ×3 (05:10→20:50)
[2022-04-09] MEDS: Furosemide 20 MG Tab PO SCH (09:06)
[2022-04-09] MEDS: Losartan 50 MG Tab PO SCH (09:06)
[2022-04-09] MEDS: Tamsulosin 0.4 MG Cap.ER PO SCH (09:06)
[2022-04-09] MEDS: amLODIPine 10 MG Tab PO SCH (09:06)
[2022-04-09] MEDS: Oxybutynin 5 MG Tab.ER PO SCH (09:06)
[2022-04-10] MEDS: Heparin Sodium 5,000 Units/ML Vial SUBCUT SCH ×3 (04:06→22:29)
[2022-04-10] MEDS: Cefepime 2 GM in Sodium Chloride 0.9% 50 ML IV SCH (04:07)
[2022-04-10] MEDS: Losartan 50 MG Tab PO SCH (09:30)
[2022-04-10] MEDS: Oxybutynin 5 MG Tab.ER PO SCH (09:30)
[2022-04-10] MEDS: Tamsulosin 0.4 MG Cap.ER PO SCH (09:31)
[2022-04-10] MEDS: amLODIPine 10 MG Tab PO SCH (09:31)
[2022-04-10] MEDS: Furosemide 20 MG Tab PO SCH (09:31)
[2022-04-11] MEDS: Heparin Sodium 5,000 Units/ML Vial SUBCUT SCH ×3 (04:37→21:46)
[2022-04-11] MEDS: Losartan 50 MG Tab PO SCH (09:30)
[2022-04-11] MEDS: Oxybutynin 5 MG Tab.ER PO SCH (09:30)
[2022-04-11] MEDS: Furosemide 20 MG Tab PO SCH (09:31)
[2022-04-11] MEDS: Tamsulosin 0.4 MG Cap.ER PO SCH (09:32)
[2022-04-11] MEDS: amLODIPine 10 MG Tab PO SCH (09:32)
[2022-04-11] MEDS: Acetaminophen 325 MG Tab PO PRN (10:45)
[2022-04-12] MEDS: Heparin Sodium 5,000 Units/ML Vial SUBCUT SCH ×3 (03:38→20:36)
[2022-04-12] MEDS: Losartan 50 MG Tab PO SCH (08:51)
[2022-04-12] MEDS: Tamsulosin 0.4 MG Cap.ER PO SCH (08:51)
[2022-04-12] MEDS: Oxybutynin 5 MG Tab.ER PO SCH (08:52)
[2022-04-12] MEDS: Furosemide 20 MG Tab PO SCH (08:52)
[2022-04-12] MEDS: amLODIPine 10 MG Tab PO SCH (08:52)
[2022-04-12] MEDS: Acetaminophen 325 MG Tab PO PRN (11:15)
[2022-04-13] MEDS: Heparin Sodium 5,000 Units/ML Vial SUBCUT SCH ×3 (04:23→19:57)
[2022-04-13] MEDS: Losartan 50 MG Tab PO SCH ×2 (07:46→08:22)
[2022-04-13] MEDS: Furosemide 20 MG Tab PO SCH ×2 (07:46→08:22)
[2022-04-13] MEDS: Oxybutynin 5 MG Tab.ER PO SCH ×2 (07:46→08:22)
[2022-04-13] MEDS: amLODIPine 10 MG Tab PO SCH ×2 (07:47→08:22)
[2022-04-13] MEDS: Tamsulosin 0.4 MG Cap.ER PO SCH ×2 (07:47→08:22)
[2022-04-14] MEDS: Heparin Sodium 5,000 Units/ML Vial SUBCUT SCH ×3 (04:52→21:57)
[2022-04-14] MEDS: amLODIPine 10 MG Tab PO SCH (09:16)
[2022-04-14] MEDS: Tamsulosin 0.4 MG Cap.ER PO SCH (09:19)
[2022-04-14] MEDS: Losartan 50 MG Tab PO SCH (09:19)
[2022-04-14] MEDS: Furosemide 20 MG Tab PO SCH (09:19)
[2022-04-14] MEDS: Oxybutynin 5 MG Tab.ER PO SCH (09:20)
[2022-04-15] MEDS: Heparin Sodium 5,000 Units/ML Vial SUBCUT SCH (04:13)
[2022-04-15] MEDS: Acetaminophen 325 MG Tab PO PRN (08:14)
[2022-04-15] MEDS: Tamsulosin 0.4 MG Cap.ER PO SCH (08:15)
[2022-04-15] MEDS: Oxybutynin 5 MG Tab.ER PO SCH (08:15)
[2022-04-15] MEDS: Furosemide 20 MG Tab PO SCH (08:15)
[2022-04-15] MEDS ORDERED: Pneumococcal 23-Valent Conjugate Vaccine 0.5 ML Syringe IM ONE (08:30)
[2022-04-15] MEDS: Losartan 50 MG Tab PO SCH (08:43)
[2022-04-15] MEDS: amLODIPine 10 MG Tab PO SCH (08:44)
[2022-04-15 09:24] VITALS: BP 141/56; PULSE 91
== END 2022-04-15 11:08 | DRG 871 ==
LOC: JD.ED 16:51 → JD.MS 19:49
PROVIDERS: ADMIT Internal Medicine; ATTEND Internal Medicine
PROC: 8E0ZXY6 Isolation (ICD-10-PCS; principal; 2022-04-02)
PROC: XW033E5 Introduction of Remdesivir Anti-infective into Peripheral Vein, Percutaneous Approach, New Technology Group 5 (ICD-10-PCS; 2022-04-03)
PROC: 05HY33Z Insertion of Infusion Device into Upper Vein, Percutaneous Approach (ICD-10-PCS; 2022-04-05)
PROC: 3E0234Z Introduction of Serum, Toxoid and Vaccine into Muscle, Percutaneous Approach (ICD-10-PCS; 2022-04-15)
DX: A41.9 Sepsis, unspecified organism (principal); J18.9 Pneumonia, unspecified organism; R09.02 Hypoxemia; E86.0 Dehydration; W19.XXXA Unspecified fall, initial encounter; J12.82 Pneumonia due to coronavirus disease 2019; N40.0 Benign prostatic hyperplasia without lower urinary tract symptoms; U07.1 COVID-19; Z90.49 Acquired absence of other specified parts of digestive tract; J96.01 Acute respiratory failure with hypoxia; Z88.6 Allergy status to analgesic agent; J69.0 Pneumonitis due to inhalation of food and vomit; K86.3 Pseudocyst of pancreas; I10 Essential (primary) hypertension; R65.20 Severe sepsis without septic shock; Z23 Encounter for immunization; I49.3 Ventricular premature depolarization; G35 Multiple sclerosis; J43.9 Emphysema, unspecified; J47.9 Bronchiectasis, uncomplicated; E78.5 Hyperlipidemia, unspecified; N40.1 Benign prostatic hyperplasia with lower urinary tract symptoms; N39.498 Other specified urinary incontinence; E66.9 Obesity, unspecified; Z88.5 Allergy status to narcotic agent; Z88.0 Allergy status to penicillin; Z79.899 Other long term (current) drug therapy; Z87.440 Personal history of urinary (tract) infections; Z68.30 Body mass index [BMI] 30.0-30.9, adult
CPT/HCPCS: 36415; 71045; 80053; 81001; 82009; 82550; 83605; 83690; 83735; 85025; 85610; 87040 ×2; 96361; 96365; 96367; 99285; J0692; J3490; J7030; U0002; 36410; 70450; 70450-26; 71275; 71275-26; 76937; 80048; 94667; 94668; 94761; 94762; 97110-GO; 97110-GP; 97112-GP; 97116-GP; 97162-GP; 97166-GO; 97530-GO; 97530-GP; 97535-GO; 99284; A9270-GY; G0009; J1644; J7050; Q9967

== ENCOUNTER 2023-04-17 16:49 | Emergency (ER) | payer MEDICAID, MEDICARE ==
[2023-04-17] MEDS ORDERED: Dextrose 5%-0.9% NaCl 1,000 ML IV SCH (17:15)
[2023-04-17 17:17] LABS: BASOPHILS ABSOLUTE AUTO 0.02 K/mm3 (0.01-0.08); BASOPHILS PERCENT AUTO 0.2 % (0.1-1.2); EOSINOPHILS ABSOLUTE AUTO 0.19 K/mm3 (0.04-0.54); EOSINOPHILS PERCENT AUTO 1.7 (0.8-7.0); HEMATOCRIT 40.5 % (40.1-51.0); HEMOGLOBIN 13.3 gm/dl (13.7-17.5); IMMATURE GRAN ABSOLUTE AUTO 0.02 K/mm3 (0.00-0.10); IMMATURE GRAN PERCENT AUTO 0.2 % (<=1.0); LYMPHOCYTES ABSOLUTE AUTO 1.64 K/mm3 (1.32-3.57); LYMPHOCYTES PERCENT AUTO 14.7 % (21.8-53.1); MEAN CORPUSCULAR HEMOGLOBIN 27.4 pg (25.7-32.2); MEAN CORPUSCULAR HGB CONC 32.8 g/dl (32.2-35.5); MEAN CORPUSCULAR VOLUME 83.3 fl (79.0-92.2); MEAN PLATELET VOLUME 9.6 fl (9.4-12.3); MONOCYTES ABSOLUTE AUTO 1.12 K/mm3 (0.30-0.82); MONOCYTES PERCENT AUTO 10.1 % (5.3-12.2); NEUTROPHILS ABSOLUTE AUTO 8.13 K/mm3 (1.78-5.38); NEUTROPHILS PERCENT AUTO 73.1 % (34.0-67.9); PLATELET COUNT,PLT 180 K/mm3 (163-337); RED BLOOD CELL COUNT 4.86 M/mm3 (4.63-6.08); WHITE BLOOD CELL COUNT,WBC 11.12 K/mm3 (4.23-9.07)
[2023-04-17 17:23] VITALS: PULSE 82
[2023-04-17 17:37] LABS: INR 0.98; PROTHROMBIN TIME 10.5 SECONDS (9.7-12.0)
[2023-04-17 17:48] LABS: A/G RATIO 0.9 (1-2); ALANINE AMINOTRANSFERASE,ALT 32 U/L (16-63); ALBUMIN 3.6 g/dl (3.4-5.0); ALKALINE PHOSPHATASE 135 U/L (46-116); ANION GAP 15.6 (5-15); ASPARTATE AMNIOTRANSFERASE,AST 21 U/L (15-37); BILIRUBIN TOTAL 0.4 mg/dL (0.2-1.0); BLOOD UREA NITROGEN,BUN 21 mg/dL (7-18); BUN/CREATININE RATIO 19.1 (14-18); CALCIUM 9.2 mg/dL (8.5-10.1); CARBON DIOXIDE,CO2 25 mEq/L (21-32); CHLORIDE,CL 102 mEq/L (98-107); CREATININE 1.1 mg/dL (0.7-1.3); ESTIMATED GFR 71 mL/min (>60); GLUCOSE RANDOM 126 mg/dL (70-99); MAGNESIUM 1.8 mg/dL (1.8-2.4); POTASSIUM,K 3.6 mEq/L (3.5-5.1); PROTEIN TOTAL,TP 7.7 g/dl (6.4-8.2); SODIUM,NA 139 mEq/L (136-145); TROPONIN I HIGH SENSITIVITY 9 pg/mL (<=76)
[2023-04-17 17:56] LABS: C-REACTIVE PROTEIN < 0.2 mg/dL (<1.0)
[2023-04-17 18:01] LABS: APPEARANCE,URINE CLEAR (Clear); BILIRUBIN,URINE NEGATIVE (Negative); COLOR,URINE YELLOW (Yellow); GLUCOSE,URINE NEGATIVE (Negative); KETONES,URINE NEGATIVE (Negative); LEUKOCYTE ESTERASE,URINE NEGATIVE (Negative); NITRITE,URINE NEGATIVE (Negative); OCCULT BLOOD,URINE NEGATIVE (Negative); PROTEIN,URINE NEGATIVE (Negative); UROBILINOGEN,URINE 0.2 (0.2-1.0)
[2023-04-17 18:16] LABS: BACTERIA,URINE FEW /hpf (FEW); MUCUS,URINE FEW /hpf (FEW); RBC,URINE 0-5 /hpf (0-5); SQUAMOUS EPITHELIAL CELLS,UR 0-5 /hpf (0-5); WBC,URINE 0-5 /hpf (0-5)
[2023-04-18 03:42] VITALS: BP 115/93
== END 2023-04-17 19:15 | disposition home or self-care (01) ==
LOC: JD.ED 16:49
DX: G35 Multiple sclerosis (principal); G81.11 Spastic hemiplegia affecting right dominant side; I10 Essential (primary) hypertension; E66.9 Obesity, unspecified; Z88.5 Allergy status to narcotic agent; Z88.0 Allergy status to penicillin; Z79.899 Other long term (current) drug therapy; W19.XXXA Unspecified fall, initial encounter; Y92.009 Unspecified place in unspecified non-institutional (private) residence as the place of occurrence of the external cause
CPT/HCPCS: 36415; 51798; 70450; 71045; 80053; 81001; 83735; 83880; 84484; 85025; 85610; 86140; 93005; 96360; 99285; J7042; 93010; 99284

== ENCOUNTER 2023-10-20 00:56 | Emergency (ER) | payer MEDICARE, MEDICAID ==
[2023-10-20] MEDS: Ketorolac 60 MG/2 ML SDV IM ONE (03:41)
[2023-10-20 06:04] VITALS: BP 145/87; PULSE 84
== END 2023-10-20 06:03 | disposition home or self-care (01) ==
LOC: JD.ED 00:56
DX: S93.401A Sprain of unspecified ligament of right ankle, initial encounter (principal); I10 Essential (primary) hypertension; E66.9 Obesity, unspecified; Z68.35 Body mass index [BMI] 35.0-35.9, adult; Z79.899 Other long term (current) drug therapy; Z88.5 Allergy status to narcotic agent; Z88.0 Allergy status to penicillin; W01.0XXA Fall on same level from slipping, tripping and stumbling without subsequent striking against object, initial encounter
CPT/HCPCS: 73610; 73630; 96372; 99283; J1885

== ENCOUNTER 2023-12-11 08:48 | Inpatient (IN) | payer MEDICARE, MEDICAID ==
[2023-12-11 09:07] LABS: BASOPHILS PERCENT AUTO 0.3 % (0.0-1.0); EOSINOPHILS ABSOLUTE AUTO 0.1 K/mm3 (0.0-0.4); HEMATOCRIT 42.9 % (42.0-52.0); HEMOGLOBIN 14.5 gm/dl (14.0-18.0); IMMATURE GRAN ABSOLUTE AUTO 0.03 K/mm3 (0.00-0.05); IMMATURE GRAN PERCENT AUTO 0.3 % (0.0-0.4); LYMPHOCYTES ABSOLUTE AUTO 1.1 K/mm3 (1.0-4.8); LYMPHOCYTES PERCENT AUTO 10.9 % (24.0-44.0); MEAN CORPUSCULAR HEMOGLOBIN 28.5 pg (28.0-32.0); MEAN CORPUSCULAR HGB CONC 33.8 g/dl (32.0-36.0); MEAN CORPUSCULAR VOLUME 84.3 fl (83.0-99.0); MEAN PLATELET VOLUME 9.6 fl (9.4-12.4); MONOCYTES ABSOLUTE AUTO 1.2 K/mm3 (0.0-0.8); MONOCYTES PERCENT AUTO 11.3 % (0.0-8.0); NEUTROPHILS ABSOLUTE AUTO 7.9 K/mm3 (1.8-7.7); NEUTROPHILS PERCENT AUTO 76.2 % (41.0-71.0); PLATELET COUNT,PLT 152 K/mm3 (150-400); RED BLOOD CELL COUNT 5.09 M/mm3 (4.52-5.90)
[2023-12-11 09:41] LABS: A/G RATIO 0.9 (1-2); ALANINE AMINOTRANSFERASE,ALT 30 U/L (16-63); ALBUMIN 3.7 g/dl (3.4-5.0); ALKALINE PHOSPHATASE 137 U/L (46-116); ANION GAP 18.6 (5-15); ASPARTATE AMNIOTRANSFERASE,AST 29 U/L (15-37); BILIRUBIN TOTAL 1.5 mg/dL (0.2-1.0); BLOOD UREA NITROGEN,BUN 23 mg/dL (7-18); BUN/CREATININE RATIO 14.4 (14-18); CALCIUM 9.2 mg/dL (8.5-10.1); CARBON DIOXIDE,CO2 22 mEq/L (21-32); CHLORIDE,CL 102 mEq/L (98-107); CREATININE 1.6 mg/dL (0.7-1.3); ESTIMATED GFR 45 mL/min (>60); GLUCOSE RANDOM 140 mg/dL (70-99); POTASSIUM,K 3.6 mEq/L (3.5-5.1); SODIUM,NA 139 mEq/L (136-145)
[2023-12-11] MEDS: Iopamidol 755 Mg/ML 100 ML Bottle IVPUSH ONE (09:41)
[2023-12-11] MEDS: Sodium Chloride 0.9% 100 ML IV SCH (09:41)
[2023-12-11 09:44] LABS: LACTIC ACID 1.4 mmol/L (0.4-2.0)
[2023-12-11 10:01] LABS: APPEARANCE,URINE CLEAR (Clear); BILIRUBIN,URINE NEGATIVE (Negative); COLOR,URINE YELLOW (Yellow); GLUCOSE,URINE NEGATIVE (Negative); KETONES,URINE NEGATIVE (Negative); LEUKOCYTE ESTERASE,URINE NEGATIVE (Negative); NITRITE,URINE NEGATIVE (Negative); OCCULT BLOOD,URINE 3+ (Negative); PROTEIN,URINE NEGATIVE (Negative); UROBILINOGEN,URINE 0.2 (0.2-1.0)
[2023-12-11 10:19] LABS: BACTERIA,URINE FEW /hpf (FEW); EPITHELIAL CELLS,URINE 0-5 /hpf (0-5); MUCUS,URINE MODERATE /hpf (FEW); RBC,URINE 30-40 /hpf (0-5); WBC,URINE 0-5 /hpf (0-5)
[2023-12-11 10:38] LABS: CORONAVIRUS COVID-19 NAA NEGATIVE (NEGATIVE); INFLUENZA A NAA NEGATIVE (NEGATIVE); RESPIRATORY SYNCYTIAL VIR NAA POSITIVE (NEGATIVE)
[2023-12-11] MEDS: Sodium Chloride 0.9% 1,000 ML IV ONE (11:18)
[2023-12-11] MEDS: Azithromycin 500 MG in Sodium Chloride 0.9% 250 ML IV ONE (11:18)
[2023-12-11] MEDS: Sodium Chloride 0.9% 10 ML Syringe FLUSH PRN (11:20)
[2023-12-11] MEDS: Albuterol 0.083% 2.5 MG/3 ML Neb Soln NEB PRN (14:20)
[2023-12-11] MEDS ORDERED: Albuterol/Ipratropium 3.0-0.5 MG/3 ML Neb Soln NEB SCH (16:00)
[2023-12-11] MEDS: Dextrose 5%-0.45% NaCl 1,000 ML IV SCH (16:25)
[2023-12-11] MEDS: Enoxaparin 40 MG/0.4 ML Syringe SUBCUT SCH (18:06)
[2023-12-11] MEDS: Albuterol 0.083% 2.5 MG/3 ML Neb Soln NEB SCH (20:33)
[2023-12-12 06:00] LABS: A/G RATIO 0.8 (1-2); ANION GAP 13.9 (5-15); BILIRUBIN TOTAL 0.7 mg/dL (0.2-1.0); BUN/CREATININE RATIO 14.2 (14-18); CALCIUM 8.5 mg/dL (8.5-10.1); CREATININE 1.2 mg/dL (0.7-1.3); EST CRCL DRUG DOSING (CG) 54.83 mL/min; MAGNESIUM 1.5 mg/dL (1.8-2.4); POTASSIUM,K 2.9 mEq/L (3.5-5.1); PROTEIN TOTAL,TP 6.7 g/dl (6.4-8.2)
[2023-12-12 06:03] LABS: BASOPHILS PERCENT AUTO 0.4 % (0.0-1.0); EOSINOPHILS ABSOLUTE AUTO 0.2 K/mm3 (0.0-0.4); EOSINOPHILS PERCENT AUTO 2.8 % (0.0-6.0); HEMATOCRIT 36.4 % (42.0-52.0); HEMOGLOBIN 12.2 gm/dl (14.0-18.0); IMMATURE GRAN ABSOLUTE AUTO 0.02 K/mm3 (0.00-0.05); IMMATURE GRAN PERCENT AUTO 0.3 % (0.0-0.4); LYMPHOCYTES ABSOLUTE AUTO 1.9 K/mm3 (1.0-4.8); LYMPHOCYTES PERCENT AUTO 24.8 % (24.0-44.0); MEAN CORPUSCULAR HEMOGLOBIN 27.9 pg (28.0-32.0); MEAN CORPUSCULAR HGB CONC 33.5 g/dl (32.0-36.0); MEAN CORPUSCULAR VOLUME 83.1 fl (83.0-99.0); MEAN PLATELET VOLUME 10.5 fl (9.4-12.4); MONOCYTES ABSOLUTE AUTO 1.1 K/mm3 (0.0-0.8); MONOCYTES PERCENT AUTO 14.4 % (0.0-8.0); NEUTROPHILS ABSOLUTE AUTO 4.3 K/mm3 (1.8-7.7); NEUTROPHILS PERCENT AUTO 57.3 % (41.0-71.0); PLATELET COUNT,PLT 136 K/mm3 (150-400); RED BLOOD CELL COUNT 4.38 M/mm3 (4.52-5.90)
[2023-12-12] MEDS: Tamsulosin 0.4 MG Cap.ER PO SCH (08:29)
[2023-12-12] MEDS: Rosuvastatin 10 MG Tab PO SCH (08:29)
[2023-12-12] MEDS: Mirabegron 25 MG Tab Extended Release PO SCH (08:29)
[2023-12-12] MEDS: Losartan 50 MG Tab PO SCH (08:30)
[2023-12-12] MEDS: Furosemide 20 MG Tab PO SCH (08:30)
[2023-12-12] MEDS: Magnesium Sulfate/Water 2 GM/50 ML BAG IV ONE (10:58)
[2023-12-12] MEDS: Magnesium Oxide 400 MG Tab PO SCH (10:59)
[2023-12-12] MEDS: Potassium Chloride 20 MEQ Tab.ER PO SCH (11:00)
[2023-12-12] MEDS: traZODone 50 MG Tab PO PRN (21:48)
[2023-12-13 06:31] LABS: A/G RATIO 0.8 (1-2); ALBUMIN 3.3 g/dl (3.4-5.0); ANION GAP 14.8 (5-15); BILIRUBIN TOTAL 0.6 mg/dL (0.2-1.0); BUN/CREATININE RATIO 18.2 (14-18); CALCIUM 9.1 mg/dL (8.5-10.1); CREATININE 1.1 mg/dL (0.7-1.3); EST CRCL DRUG DOSING (CG) 59.81 mL/min; MAGNESIUM 2.1 mg/dL (1.8-2.4); POTASSIUM,K 3.8 mEq/L (3.5-5.1); PROTEIN TOTAL,TP 7.4 g/dl (6.4-8.2)
[2023-12-13 06:38] LABS: BASOPHILS PERCENT AUTO 0.3 % (0.0-1.0); EOSINOPHILS ABSOLUTE AUTO 0.3 K/mm3 (0.0-0.4); EOSINOPHILS PERCENT AUTO 3.5 % (0.0-6.0); HEMATOCRIT 39.8 % (42.0-52.0); HEMOGLOBIN 13.1 gm/dl (14.0-18.0); IMMATURE GRAN ABSOLUTE AUTO 0.03 K/mm3 (0.00-0.05); IMMATURE GRAN PERCENT AUTO 0.3 % (0.0-0.4); LYMPHOCYTES ABSOLUTE AUTO 2.4 K/mm3 (1.0-4.8); LYMPHOCYTES PERCENT AUTO 24.2 % (24.0-44.0); MEAN CORPUSCULAR HEMOGLOBIN 27.9 pg (28.0-32.0); MEAN CORPUSCULAR HGB CONC 32.9 g/dl (32.0-36.0); MEAN CORPUSCULAR VOLUME 84.7 fl (83.0-99.0); MEAN PLATELET VOLUME 10.5 fl (9.4-12.4); MONOCYTES ABSOLUTE AUTO 0.9 K/mm3 (0.0-0.8); NEUTROPHILS ABSOLUTE AUTO 6.2 K/mm3 (1.8-7.7); NEUTROPHILS PERCENT AUTO 62.7 % (41.0-71.0); PLATELET COUNT,PLT 148 K/mm3 (150-400)
[2023-12-13] MEDS: predniSONE 20 MG Tab PO SCH (09:53)
[2023-12-14 06:26] LABS: A/G RATIO 0.8 (1-2); ALBUMIN 3.2 g/dl (3.4-5.0); ANION GAP 17.3 (5-15); BILIRUBIN TOTAL 0.4 mg/dL (0.2-1.0); BUN/CREATININE RATIO 17.5 (14-18); CALCIUM 9.3 mg/dL (8.5-10.1); CREATININE 1.2 mg/dL (0.7-1.3); EST CRCL DRUG DOSING (CG) 54.83 mL/min; MAGNESIUM 2.1 mg/dL (1.8-2.4); POTASSIUM,K 4.3 mEq/L (3.5-5.1); PROTEIN TOTAL,TP 7.3 g/dl (6.4-8.2)
[2023-12-14 06:32] LABS: BASOPHILS PERCENT AUTO 0.2 % (0.0-1.0); EOSINOPHILS ABSOLUTE AUTO 0.2 K/mm3 (0.0-0.4); EOSINOPHILS PERCENT AUTO 1.5 % (0.0-6.0); HEMATOCRIT 38.5 % (42.0-52.0); HEMOGLOBIN 12.9 gm/dl (14.0-18.0); IMMATURE GRAN ABSOLUTE AUTO 0.04 K/mm3 (0.00-0.05); IMMATURE GRAN PERCENT AUTO 0.3 % (0.0-0.4); LYMPHOCYTES ABSOLUTE AUTO 2.7 K/mm3 (1.0-4.8); LYMPHOCYTES PERCENT AUTO 21.4 % (24.0-44.0); MEAN CORPUSCULAR HGB CONC 33.5 g/dl (32.0-36.0); MEAN CORPUSCULAR VOLUME 83.5 fl (83.0-99.0); MEAN PLATELET VOLUME 9.9 fl (9.4-12.4); MONOCYTES ABSOLUTE AUTO 0.8 K/mm3 (0.0-0.8); MONOCYTES PERCENT AUTO 6.5 % (0.0-8.0); NEUTROPHILS PERCENT AUTO 70.1 % (41.0-71.0); PLATELET COUNT,PLT 163 K/mm3 (150-400); RED BLOOD CELL COUNT 4.61 M/mm3 (4.52-5.90); WHITE BLOOD CELL COUNT,WBC 12.81 K/mm3 (3.9-11.3)
[2023-12-14 13:09] VITALS: BP 122/57; PULSE 77
== END 2023-12-14 13:00 | disposition home or self-care (01) | DRG 189 ==
LOC: JD.ED 08:48 → JD.MS 11:57
PROVIDERS: ADMIT Pediatrics; ATTEND Internal Medicine
DX: J96.01 Acute respiratory failure with hypoxia (principal); J20.9 Acute bronchitis, unspecified; T74.01XA Adult neglect or abandonment, confirmed, initial encounter; N17.9 Acute kidney failure, unspecified; J20.5 Acute bronchitis due to respiratory syncytial virus; R62.7 Adult failure to thrive; G35 Multiple sclerosis; I10 Essential (primary) hypertension; N40.0 Benign prostatic hyperplasia without lower urinary tract symptoms; E66.9 Obesity, unspecified; E86.0 Dehydration; R41.81 Age-related cognitive decline; W19.XXXA Unspecified fall, initial encounter; Z88.0 Allergy status to penicillin; Z88.5 Allergy status to narcotic agent; Z79.899 Other long term (current) drug therapy; Z87.442 Personal history of urinary calculi; Z87.440 Personal history of urinary (tract) infections; Z68.31 Body mass index [BMI] 31.0-31.9, adult; Z98.49 Cataract extraction status, unspecified eye; Z90.49 Acquired absence of other specified parts of digestive tract; Z87.891 Personal history of nicotine dependence; Y92.009 Unspecified place in unspecified non-institutional (private) residence as the place of occurrence of the external cause
CPT/HCPCS: 0241U; 36415; 70450; 70496; 70498; 71250; 80053; 81001; 83605; 83735; 85025; 93005; 94640; 94667; 94668; 94760; 94761; 96365; 97110; 97116; 97161; 99285; 93010; A9270-GY; J0456; J1650; J3475; J3490; J7030; J7042; J7050; J7512; J7620-GY; Q9967

== ENCOUNTER 2024-06-28 03:31 | Emergency (ER) | payer MEDICARE, MEDICAID ==
[2024-06-28] MEDS: Acetaminophen/HYDROcodone 325-5 MG Tab PO ONE (03:54)
[2024-06-28] MEDS: Clindamycin HCl 150 MG Cap PO ONE (03:55)
[2024-06-28 04:08] VITALS: BP 160/90; PULSE 62
== END 2024-06-28 04:22 | disposition home or self-care (01) ==
LOC: JD.ED 03:31
DX: K04.7 Periapical abscess without sinus (principal); K02.9 Dental caries, unspecified; K08.89 Other specified disorders of teeth and supporting structures; E66.9 Obesity, unspecified; I10 Essential (primary) hypertension; Z79.899 Other long term (current) drug therapy; Z88.0 Allergy status to penicillin; Z88.5 Allergy status to narcotic agent
CPT/HCPCS: 99282; A9270-GY

== ENCOUNTER 2025-07-05 08:49 | Emergency (ER) | payer MEDICARE, MEDICAID ==
[2025-07-05 09:07] VITALS: PULSE 87
[2025-07-05 12:03] VITALS: BP 190/82
== END 2025-07-05 12:03 | disposition home or self-care (01) ==
LOC: JD.ED 08:49
DX: K02.9 Dental caries, unspecified (principal); K08.89 Other specified disorders of teeth and supporting structures; I10 Essential (primary) hypertension; E66.9 Obesity, unspecified; Z79.899 Other long term (current) drug therapy; Z88.5 Allergy status to narcotic agent; Z88.0 Allergy status to penicillin; Z68.31 Body mass index [BMI] 31.0-31.9, adult
CPT/HCPCS: 99282; A9270; 99284